=== PATIENT | male | born 1990 | race Caucasian/White ===

== ENCOUNTER 2019-11-29 14:01 | Inpatient (IN) | payer BC, OTHER ==
[~2019-11-29] VITALS: Ht 185.4 cm; Wt 97.7 kg
[~2019-11-29 14:01] MED LIST: NAPR500T2 PO; NORCOTAB PO; no home medications
[2019-11-29 14:40] LABS: HEMATOCRIT 52.3 % (42.0-52.0); HEMOGLOBIN 17.4 g/dl (13.5-17.5); MEAN CORPUSCULAR HEMOGLOBIN 29.9 pg (27.0-33.0); MEAN CORPUSCULAR HGB CONC 33.3 g/dl (32.0-36.5); MEAN CORPUSCULAR VOLUME 89.9 fl (80.0-96.0); PLATELET COUNT, AUTOMATED 251 10^3/uL (150-450); RED BLOOD COUNT 5.82 10^6/uL (4.30-6.10); WHITE BLOOD COUNT 8.6 10^3/uL (4.0-10.0)
[2019-11-29 15:06] LABS: AMPHETAMINES LEVEL URINE NEGATIVE (NEGATIVE); BARBITURATES URINE NEGATIVE (NEGATIVE); BENZODIAZEPINES URINE NEGATIVE (NEGATIVE); CANNABINOIDS URINE POSITIVE (NEGATIVE); COCAINE METABOLITE URINE NEGATIVE (NEGATIVE); METHADONE URINE NEGATIVE (NEGATIVE); OPIATES URINE NEGATIVE (NEGATIVE); PHENCYCLIDINE URINE NEGATIVE (NEGATIVE)
[2019-11-29 15:19] LABS: ACETAMINOPHEN LEVEL < 2.0 UG/ML (10.0-30.0); ALBUMIN 4.7 GM/DL (3.2-5.2); ALT/SGPT 34 U/L (12-78); BILIRUBIN,DIRECT 0.1 MG/DL (0.0-0.2); BILIRUBIN,TOTAL 0.4 MG/DL (0.2-1.0); BLOOD UREA NITROGEN 9 MG/DL (7-18); CALCIUM LEVEL 9.1 MG/DL (8.5-10.1); CARBON DIOXIDE LEVEL 28 MEQ/L (21-32); CHLORIDE LEVEL 107 MEQ/L (98-107); CREATININE FOR GFR 1.03 MG/DL (0.70-1.30); ETHYL ALCOHOL (ETHANOL) 0.065 % (0.000-0.010); GLOMERULAR FILTRATION RATE > 60.0 (>60); GLUCOSE, FASTING 94 MG/DL (70-100); SALICYLATE LEVEL < 1.7 MG/DL (5.0-30.0); SODIUM LEVEL 139 MEQ/L (136-145); TOTAL PROTEIN 8.3 GM/DL (6.4-8.2)
[2019-11-29] MEDS ORDERED: ONDANSETRON 4 MG TAB (S0181) PO ONE (20:30)
[2019-11-29] MEDS ORDERED: ACETAMINOPHEN 325 MG TAB PO ONE (20:45)
[2019-11-29] MEDS ORDERED: MOM 30ML SUSPENSION UDC PO PRN (21:00)
[2019-11-29] MEDS ORDERED: ACETAMINOPHEN TAB 650MG DOSE (2X325MG) PO PRN (21:00)
[2019-11-29] MEDS ORDERED: traZODone 50 MG TAB PO PRN (21:00)
[2019-11-29] MEDS ORDERED: MAALOX 30 ML SUSP *UDC PO PRN (21:00)
[2019-11-29] MEDS ORDERED: LORazepam 2 MG TAB PO PRN (21:00)
[2019-11-29] MEDS: THIAMINE 100 MG TAB PO SCH (22:47)
[2019-11-30 00:46] VITALS: BP 138/90
[2019-11-30 01:19] VITALS: BP 138/90
[2019-11-30 06:16] VITALS: BP 138/90
[2019-11-30] MEDS ORDERED: FOLIC ACID 1 MG TAB PO SCH (09:00)
[2019-11-30] MEDS ORDERED: MULTIVITAMINS/MINERALS THERAP 1 TAB PO SCH (09:00)
--- NOTE | 2019-11-30 09:13 | MHHPEPDOC ---
[facility] History & Physical History and Physical DATE OF ADMISSION: Nov 29, 2019 at 20:51 New Patient Zeb Leiva MRN: [id number] Date of : N/A Date of Service: 11/30/2019 Chief Complaint "I really didn't intend anything." History of Present Illness The patient, a 29-year-old man with no major psychiatric history, presents to [facility] after reportedly getting in argument with his bank and making a vague suicidal comment. He was brought in and admitted out of an abundance of caution. When the patient was met with he reported that he had some situational low mood related to financial troubles and a loan, but that overall he reports that he has been "cope with it well." He reports that he was drinking the day in question and had, had several beers. The patient reports that otherwise he is doing well. Collateral information from girlfriend doesn't reveal any concerning behavior other than some tearfulness at times, although parasuicidal behavior was not able to be elaborated and does not appear to be a part of his presentation at this time. Patient is requesting discharge. In behavioral control without any problems. Review Of Systems Depression: As above, does not meet criteria for MDD. Anxiety: The patient denies any excessive worry associated with physical symptoms. They deny any experience of discreet panic in the past. Irma: The patient denies any episodes of euphoria/dysphoria associated with decreased need for sleep, hedonism, talkatively or impulsivity lasting longer than 5 days. Psychotic: The patient denies any experiences of auditory or visual hallucinations. They deny any episodes of paranoia or delusional thinking in the past Trauma: The patient denies any traumatic events associated with nightmares or intrusive thoughts. Borderline: The patient screens negative for borderline personality at this junc tion. Past Psychiatric History The patient reports no history of psychiatric admissions, medication trials or current follow up. Denies any history of suicide attempts. Allergies Please see below. Family Psychiatric History The patient denies/is unaware any history of mental health history including addictions and suicide. 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 Reports no significant legal trouble. Graduated high school. Denies any history of trauma or abuse. Substance Abuse History The patient reports smoking cannabis intermittently and drinking at times although he denies excessive use, denies other illicit drugs. Medical History Patient has no significant past medical history. Mental Status Examination General: Well dressed with good hygiene Speech: Spontaneous and fluid Thought processes: Linear and logical MSK: Smooth and coordinated gait, no signs of tremors or involuntary orofacial movements Thought content: Future orientated Abstract reasoning, and computation: Intact Description of associations: Intact Description of abnormal or psychotic thoughts: Denies any suicidal or homicidal ideation. Denies any auditory or visual hallucinations. Does not appear to be responding to internal stimuli. Does not appear to be endorsing any bizarre or paranoid ideation. 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 Alcohol use disorder, unspecified. Assessment and Plan The patient, a 29-year-old man, presents after reportedly coming in intoxicated and had made a concerning statement to his bank. Police were called and he was escorted for evaluation. He was admitted out of an abundance of caution, bandar palma, upon gathering more collateral information and observation it appears quite clear that the patient has no signs or symptoms of major depression, is currently euthymic with a normal mental status exam. He's been denying suicidality since he arrived, furthermore he has no significant psychiatric history that we are able to ascertain at this time and thus he cannot be held against his will as I do not believe that he meets involuntary criteria in my clinical judgment for extension of his admission. He declines a voluntary and thus will be discharged in good margaret with followup. Disposition Same day discharge. Problem List 1. Risk for suicide. 2. Substance use. Initial Treatment Plan 1. Patient was admitted on a 9.39 legal status. 2. Complete history was obtained. 3. With patients permission, family will be contacted and database will be expanded. 4. Patients medication regimen will be reviewed and changed accordingly. 5. Patient will be provided with protected environment. 6. Patient will be treated with individual, group, and milieu therapies. 7. Patient will receive supportive psych-education. 8. Discharge planning will commence immediately. 9. Outpatient follow-up treatment will be strongly recommended. 10. The initial treatment plan will focus initially on: Estimated Length Of Stay 1 day. Time Spent 70 minutes in total with greater than 50% of time spent on counseling/coordination of care. Vital Signs Vital Signs Date Time Temp Pulse Resp B/P (MAP) Pulse Ox O2 Delivery O2 Flow Rate FiO2 11/30/19 01:19 138/90 11/30/19 00:46 98.0 75 16 98 Room Air Laboratory Data 24H Labs Laboratory Tests 2 11/29/19 14:18: Nucleated Red Blood Cells % (auto) 0.0, Anion Gap 4L, Glomerular Filtration Rate > 60.0, Calcium Level 9.1, Total Bilirubin 0.4, Direct Bilirubin 0.1, Aspartate Amino Transf (AST/SGOT) 19, Alanine Aminotransferase (ALT/SGPT) 34, Alkaline Phosphatase 77, Total Protein 8.3H, Albumin 4.7, Albumin/Globulin Ratio 1.31, yroid Stimulating Hormone (TSH) 1.120, Salicylates Level < 1.7L, Urine Opiates Screen NEGATIVE, Urine Methadone Screen NEGATIVE, Acetaminophen Level < 2.0L, Urine Barbiturates Screen NEGATIVE, Urine Phencyclidine Screen NEGATIVE, Urine Amphetamines Screen NEGATIVE, Urine Benzodiazepines Screen NEGATIVE, Urine Cocaine Metabolite Screen NEGATIVE, Urine Cannabinoids Screen POSITIVEH, Ethyl Alcohol Level 0.065H CBC/BMP Laboratory Tests 11/29/19 14:18 Medications No Active Prescriptions or Reported Meds Allergies Coded Allergies: No Known Allergies (Verified , 04/16/03) MATEO SAWYER DO Nov 30, 2019 09:13
[2019-11-30] MEDS: THIAMINE 100 MG TAB PO SCH (09:30)
--- NOTE | 2019-11-30 10:33 | MHDSPDOC ---
[facility] Discharge Summary Discharge Summary DATE OF ADMISSION: Nov 29, 2019 at 20:51 DATE OF DISCHARGE: 11/30/19 Please see h/p for same day discharge Vital Signs/I&Os Vital Signs Date Time Temp Pulse Resp B/P (MAP) Pulse Ox O2 Delivery O2 Flow Rate FiO2 11/30/19 01:19 138/90 11/30/19 00:46 98.0 75 16 98 Room Air Laboratory Data Labs 24H Laboratory Tests 2 11/29/19 14:18: Nucleated Red Blood Cells % (auto) 0.0, Anion Gap 4L, Glomerular Filtration Rate > 60.0, Calcium Level 9.1, Total Bilirubin 0.4, Direct Bilirubin 0.1, Aspartate Amino Transf (AST/SGOT) 19, Alanine Aminotransferase (ALT/SGPT) 34, Alkaline Phosphatase 77, Total Protein 8.3H, Albumin 4.7, Albumin/Globulin Ratio 1.31, Thyroid Stimulating Hormone (TSH) 1.120, Salicylates Level < 1.7L, Urine Opiates Screen NEGATIVE, Urine Methadone Screen NEGATIVE, Acetaminophen Level < 2.0L, Urine Barbiturates Screen NEGATIVE, Urine Phencyclidine Screen NEGATIVE, Urine Amphetamines Screen NEGATIVE, Urine Benzodiazepines Screen NEGATIVE, Urine Cocaine Metabolite Screen NEGATIVE, Urine Cannabinoids Screen POSITIVEH, Ethyl Alcohol Level 0.065H CBC/BMP Laboratory Tests 11/29/19 14:18 Medications No Active Prescriptions or Reported Meds Allergies Coded Allergies: No Known Allergies (Verified , 04/16/03) MATEO SAWYER DO Nov 30, 2019 10:33
== END 2019-11-30 13:42 | disposition home or self-care (01) | DRG 775 ==
LOC: M ED 14:01 → M ED INP 20:51 → M PSY 11-30 00:30
PROVIDERS: ADMIT Psychiatry & Neurology Addiction Medicine; ATTEND Psychiatry & Neurology Addiction Medicine
DX: F10.14 Alcohol abuse with alcohol-induced mood disorder (principal)

== ENCOUNTER 2020-07-13 19:29 | Emergency (ER) | payer BC, OTHER ==
[~2020-07-13] VITALS: Ht 185.4 cm; Wt 102.2 kg
[2020-07-13 19:30] VITALS: BP 167/91
[2020-07-13] MEDS ORDERED: LIDOCAINE 1% MDV 20ML VIAL SC ONE (20:00)
[2020-07-13] MEDS ORDERED: KEFL500C17 PO (20:57)
[2020-07-13] MEDS ORDERED: NEOSPORIN OINT 0.9 GM PKT TOP ONE (21:00)
== END 2020-07-13 21:11 | disposition home or self-care (01) ==
LOC: M ED 19:29
DX: S61.214A Laceration without foreign body of right ring finger without damage to nail, initial encounter (principal); W25.XXXA Contact with sharp glass, initial encounter; Y92.099 Unspecified place in other non-institutional residence as the place of occurrence of the external cause; Y93.9 Activity, unspecified; Y99.9 Unspecified external cause status

== ENCOUNTER → 2020-12-13 | Outpatient (CLI) | payer OTHER ==
[~2020-12-13] MED LIST changes: +KEFL500C17 PO
== END ==
LOC: M OUTALCOH 08:28
PROVIDERS: ATTEND Psychiatry & Neurology Psychiatry
DX: F10.20 Alcohol dependence, uncomplicated (principal)

== ENCOUNTER 2020-12-20 13:00 | Outpatient (RCR) | payer OTHER | END 2021-01-08 | LOC: M OUTALCOH 13:00 | PROVIDERS: ATTEND Psychiatry & Neurology Psychiatry | DX: F10.20 Alcohol dependence, uncomplicated (principal) ==

== ENCOUNTER → 2023-06-16 | Outpatient (CLI) | payer OTHER | LOC: M OUTALCOH 08:54 | PROVIDERS: ATTEND Psychiatry & Neurology Psychiatry | DX: Z03.89 Encounter for observation for other suspected diseases and conditions ruled out (principal) ==